=== PATIENT | male | born 1985 | race American Indian/Alaskan Native ===

== ENCOUNTER 2018-12-10 17:36 | Emergency (ER) | payer OTHER ==
[2018-12-10 17:49] VITALS: BP 138/81; PULSE 85; RESP 16; TEMP 98; O2SAT 98
--- NOTE | 2018-12-10 18:04 | C.PDOC ---
History Of Present Illness Patient is a 33 year old male who presents to the ED c/o fever, sinus congestion, left sided facial pain for the past 5/6 days. Patient states he has been taking Tylenol with no relief and has also been blowing out green stuff from his nose. Patient denies any cough, SOB, nausea, vomiting, or diarrhea. Time Seen by Provider: 12/10/18 17:47 Chief Complaint (Nursing): Fever History Per: Patient History/Exam Limitations: no limitations Onset/Duration Of Symptoms: Days (6) Current Symptoms Are (Timing): Still Present Location Of Pain: Sinus/es Associated Symptoms: Fever, Nasal Congestion. denies: Cough, Nausea, Vomiting, Diarrhea Recent travel outside of the [place]: No Additional History Per: Patient Past Medical History Reviewed: Historical Data, Nursing Documentation, Vital Signs Vital Signs: Last Vital Signs Temp 98 F 12/10/18 17:47 Pulse 85 12/10/18 17:47 Resp 16 12/10/18 17:47 BP 138/81 12/10/18 17:47 Pulse Ox 98 12/10/18 17:47 - Medical History PMH: No Chronic Diseases Surgical History: No Surg Hx Family History: States: No Known Family Hx - Social History Hx Alcohol Use: No Hx Substance Use: No - Immunization History Hx Tetanus Toxoid Vaccination: No Hx Influenza Vaccination: No Hx Pneumococcal Vaccination: No Review Of Systems Constitutional: Positive for: Fever. Negative for: Chills, Weakness Eyes: Negative for: Redness, Other (scleral icterus ) ENT: Positive for: Nose Congestion, Other (left sided facial pain ). Negative for: Mouth Swelling Cardiovascular: Negative for: Chest Pain Respiratory: Negative for: Cough, Shortness of Breath Gastrointestinal: Negative for: Nausea, Vomiting, Diarrhea Genitourinary: Negative for: Dysuria, Hematuria Musculoskeletal: Negative for: Back Pain Skin: Negative for: Rash Neurological: Negative for: Weakness, Numbness, Dizziness Physical Exam - Physical Exam Appears: Well, Non-toxic, No Acute Distress Skin: Normal Color, Warm, No Rash Head: Atraumatic, Normacephalic Eye(s): bilateral: Normal Inspection, PERRL, EOMI Nose: Other (enlarged tubrinates bilateral with yellow green mucus, pain to percussion of right maxillary sinus ) Oral Mucosa: Moist Throat: Normal, No Exudate, Other (pharnyx well appearin) Neck: Normal ROM, Supple Chest: Symmetrical Cardiovascular: Rhythm Regular, No Murmur Respiratory: Normal Breath Sounds, No Accessory Muscle Use, No Rales, No Rhonchi, No Wheezing Gastrointestinal/Abdominal: Soft, No Distention Extremity: Normal ROM Extremity: Bilateral: Atraumatic Pulses: Left Radial: Normal, Right Radial: Normal Neurological/Psych: Oriented x3, Normal Cranial Nerves Gait: Steady ED Course And Treatment O2 Sat by Pulse Oximetry: 98 (on RA) Pulse Ox Interpretation: Normal Medical Decision Making Medical Decision Making: Diagnosis: Bacterial sinusitis Disposition Counseled Patient/Family Regarding: Diagnosis, Need For Followup, Rx Given - Disposition Disposition: HOME/ ROUTINE Disposition Time: 18:05 Condition: STABLE Prescriptions: Amoxicillin 500 mg PO TID #21 tablet Cetirizine HCl/Pseudoephedrine [Zyrtec-D Tablet] 1 each PO DAILY #14 tab.er.12h Ibuprofen [Motrin Tab] 800 mg PO TID PRN #21 tab PRN Reason: Pain, Moderate (4-7) Instructions: Bacterial Upper Respiratory Infection, Adult (DC) Forms: [employer] (Lao), General Discharge Instructions - Clinical Impression Clinical Impression: Acute bacterial sinusitis - 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 - Scribe Statement The provider has reviewed the documentation as recorded by the Tyra Colunga All medical record entries made by the Scribe were at my direction and personally dictated by me. I have reviewed the chart and agree that the record accurately reflects my personal performance of the history, physical exam, medical decision making, and the department course for this patient. I have also personally directed, reviewed, and agree with the discharge instructions and disposition.
== END 2018-12-10 18:11 | disposition home or self-care (01) ==
LOC: C.ER 17:36
DX: J01.90 Acute sinusitis, unspecified (principal)

== ENCOUNTER 2019-01-04 14:12 | Emergency (ER) | payer OTHER ==
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
--- NOTE | 2019-01-04 16:04 | CT ---
Date of service: 01/04/2019 PROCEDURE: CT HEAD WITHOUT CONTRAST. HISTORY: dizziness COMPARISON: None available. TECHNIQUE: Axial computed tomography images were obtained through the head/brain without intravenous contrast. Radiation dose: Total exam DLP = 1072.03 mGy-cm. This CT exam was performed using one or more of the following dose reduction techniques: Automated exposure control, adjustment of the mA and/or kV according to patient size, and/or use of iterative reconstruction technique. FINDINGS: HEMORRHAGE: No intracranial hemorrhage. BRAIN: No mass effect or edema. No atrophy or chronic microvascular ischemic changes. VENTRICLES: Unremarkable. No hydrocephalus. CALVARIUM: Unremarkable. PARANASAL SINUSES: Unremarkable as visualized. No significant inflammatory changes. MASTOID AIR CELLS: Unremarkable as visualized. No inflammatory changes. OTHER FINDINGS: None. IMPRESSION: No evidence of acute intracranial hemorrhage mass effect or midline shift.
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
--- NOTE | 2019-01-04 16:35 | CT ---
Date of service: 01/04/2019 PROCEDURE: CT Cervical Spine without contrast HISTORY: fall COMPARISON: None available. TECHNIQUE: Axial computed tomography images were obtained of the cervical spine without the use of intravenous contrast. Coronal and sagittal reformatted images were created and reviewed. 3D reformatted images of the cervical spine were also obtained. Radiation dose: Total exam DLP = 460.01 mGy-cm. This CT exam was performed using one or more of the following dose reduction techniques: Automated exposure control, adjustment of the mA and/or kV according to patient size, and/or use of iterative reconstruction technique. FINDINGS: VERTEBRAE: No fracture. Normal alignment. No destructive bony lesion. DISCS/SPINAL CANAL/NEURAL FORAMINA: No significant central canal or neural foraminal stenosis. Discs heights are grossly preserved. PARASPINAL SOFT TISSUES: Unremarkable. OTHER FINDINGS: None. IMPRESSION: No evidence of acute displaced fracture or subluxation. Mild spondylosis.
[2019-01-04 17:25] VITALS: BP 130/80; PULSE 99; RESP 18; TEMP 98
[2019-01-04 19:16] VITALS: O2SAT 95
== END 2019-01-04 17:12 | disposition home or self-care (01) ==
LOC: C.ER 14:12
DX: S00.93XA Contusion of unspecified part of head, initial encounter (principal); S10.93XA Contusion of unspecified part of neck, initial encounter; Y04.0XXA Assault by unarmed brawl or fight, initial encounter; Y92.29 Other specified public building as the place of occurrence of the external cause; Y99.0 Civilian activity done for income or pay